=== PATIENT | female | born 1940 | race Caucasian/White ===

== ENCOUNTER → 2017-01-19 | Day surgery (SDC) | payer OTHER ==
[~2017-01-19] MED LIST: D5 LR 1000 ML 1,000 ML IV ONE; DIPRIVAN VIAL 10 ML ONE; DIPRIVAN VIAL 20 ML ONE
[2017-01-19 10:12] VITALS: BP 114/59
== END | disposition home or self-care (01) | DRG 951 ==
LOC: SURG1 07:01
PROVIDERS: ATTEND Internal Medicine Gastroenterology
PROC: 0DBK8ZX Excision of Ascending Colon, Via Natural or Artificial Opening Endoscopic, Diagnostic (ICD-10-PCS; principal; 2017-01-19 08:00)
PROC: 0DBN8ZX Excision of Sigmoid Colon, Via Natural or Artificial Opening Endoscopic, Diagnostic (ICD-10-PCS; principal; 2017-01-19 08:00)
PROC: 0DBP8ZX Excision of Rectum, Via Natural or Artificial Opening Endoscopic, Diagnostic (ICD-10-PCS; principal; 2017-01-19 08:00)
PROC: 0DJD8ZZ Inspection of Lower Intestinal Tract, Via Natural or Artificial Opening Endoscopic (ICD-10-PCS; principal; 2017-01-19 08:00)
DX: Z12.11 Encounter for screening for malignant neoplasm of colon (principal); K92.1 Melena; K63.5 Polyp of colon; K57.30 Diverticulosis of large intestine without perforation or abscess without bleeding; K64.8 Other hemorrhoids; Z80.0 Family history of malignant neoplasm of digestive organs; Z86.010 Personal history of colon polyps; D12.5 Benign neoplasm of sigmoid colon; D12.2 Benign neoplasm of ascending colon; D12.7 Benign neoplasm of rectosigmoid junction
CPT/HCPCS: 99100; A4217; J3490; J7120

== ENCOUNTER 2017-08-31 07:28 | Day surgery (SDC) | payer OTHER ==
[2017-08-31] MEDS ORDERED: D5 LR 1000 ML 1,000 ML IV ONE (07:32)
[2017-08-31] MEDS ORDERED: NS 1000 ML 1,000 ML ONE (07:51)
[2017-08-31] MEDS ORDERED: DIPRIVAN VIAL 20 ML ONE (09:11)
[2017-08-31 10:12] VITALS: BP 120/60
== END 2017-08-31 10:11 | disposition home or self-care (01) ==
LOC: SURG1 07:28
PROVIDERS: ATTEND Internal Medicine Gastroenterology
PROC: 0DBN8ZX Excision of Sigmoid Colon, Via Natural or Artificial Opening Endoscopic, Diagnostic (ICD-10-PCS; principal; 2017-08-31 09:15)
PROC: 0DJ08ZZ Inspection of Upper Intestinal Tract, Via Natural or Artificial Opening Endoscopic (ICD-10-PCS; principal; 2017-08-31 09:15)
DX: K62.1 Rectal polyp (principal); K64.0 First degree hemorrhoids; Z86.010 Personal history of colon polyps; K31.89 Other diseases of stomach and duodenum; Z80.0 Family history of malignant neoplasm of digestive organs; D12.5 Benign neoplasm of sigmoid colon
CPT/HCPCS: 99100; A4217; J3490; J7120